=== PATIENT | female | born 1960 | race Caucasian/White ===

== ENCOUNTER → 2017-11-24 | Emergency (ER) | payer BC ==
[~2017-11-24] VITALS: Ht 175.3 cm; Wt 113.4 kg
[~2017-11-24] MED LIST: HYZAAR 100-12.1 EACH; LEVAQUIN750 MG PO; MEDROLPACK PO; MUCINEX DM ER1 EAC1 PO; PROAIR HFA8.5 GM IH; SYMBICORT 16010.2 GM IH; TESSALON PERLE100 MG PO
== END | disposition home or self-care (01) ==
LOC: ER 15:19
DX: J40 Bronchitis, not specified as acute or chronic (principal)